=== PATIENT | female | born 1985 | race Caucasian/White ===

== ENCOUNTER → 2017-02-27 | Outpatient (CLI) | payer BC ==
[~2017-02-27] MED LIST: BARIUM SULFATE 60% 355 ML SUSP PO ONE
--- NOTE | 2017-02-27 09:16 | RAD ---
Indication: Abdominal pain and vomiting. The patient ingested barium and serial radiographs of the abdomen were obtained. A total of 1.1 minute of fluoroscopy time was noted. Only one fluoroscopic image was obtained. The preliminary radiograph demonstrates the bowel gas pattern to be unremarkable. There is an IUD in the midline of the pelvis. The stomach has a normal configuration. There is prompt emptying into the small bowel. The small bowel is nondilated. There is a normal small bowel transit time. No obstruction is seen. The mucosal pattern is unremarkable. No intrinsic or extrinsic mass is seen. Impression: Unremarkable small bowel study.
== END | disposition home or self-care (01) ==
LOC: RAD 14:08
PROVIDERS: ATTEND Internal Medicine Gastroenterology
DX: R10.9 Unspecified abdominal pain (principal); R11.11 Vomiting without nausea; K58.9 Irritable bowel syndrome, unspecified
CPT/HCPCS: 74250

== ENCOUNTER → 2017-03-08 | Day surgery (SDC) | payer BC ==
[~2017-03-08] MED LIST changes: -BARIUM SULFATE 60% 355 ML SUSP PO ONE; +BUPR150T6 PO; +DIAZ5TAB PO; +HYDROmorphone 2 MG/ML VIAL IV PRN; +IV RINGERS,LACTATED 1000ML 1,000 ML IV SCH; +LIDOCAINE 1% 1 ML SYRINGE. ID PRN; +LIDOCAINE 2% PF Vial for OR 5 ML VIAL. ONE; +MIDAZOLAM HCL/PF 2 MG/2 ML VIAL. IV PRN; +MORPHINE SULFATE 2 MG/ML DISP.SYRIN. IV PRN; +ONDANSETRON PF 4 MG/2 ML VIAL. IV PRN; +PROCHLORPERAZINE 10 MG/2 ML VIAL. IV PRN; +PROM25TA10 PO; +PROPOFOL 20 ML IV ONE; +PROPOFOL 40 ML IV ONE; +PROT420P PO; +fentaNYL PF VIAL 100 MCG/2 ML VIAL IV PRN
[2017-03-08 09:13] LABS: NEG OBC UR NEG; POS OBC UR POS
[2017-03-08 10:29] VITALS: BP 107/62
--- NOTE | 2017-03-11 15:30 | PATHOLOGY ---
PATHOLOGY REPORT * * * * * * * * FINAL DIAGNOSIS: A. Duodenal biopsy: - No significant pathologic abnormalities. B. Random colon biopsy: - No significant pathologic abnormalities. COMMENT: Sections of the duodenal biopsy reveal segments of small intestine and duodenal mucosa. Where best oriented, the mucosal villi appear normal. There are no sprue-like changes or significant inflammatory changes. Sections of the random colon biopsy reveal multiple segments of colonic mucosa containing several mucosal-associated lymphoid aggregates. There is no evidence of a chronic destructive colitis, lymphocytic colitis, or collagenous colitis. (JPM:csd; d/t: 03/11/2017) REPORT ELECTRONICALLY SIGNED BY: Julio Cesar Grimes M.D. DATE/TIME: 03/11/2017 15:30 * * * * * * * * GROSS PATHOLOGY: A. Received in formalin labeled "Sánchez Choudhury duodenal biopsies," are 9 segments of pelayo soft tissue measuring 1.0 x 0.7 x 0.3 cm in aggregate dimensions and ranging from 0.2 to 0.4 cm in maximum dimension. The specimen is submitted entirely in cassette A1. B. Received in formalin labeled "Sánchez Choudhury, random colon biopsies," are multiple (more than 10) segments of pelayo soft tissue measuring 1.2 x 0.8 x 0.2 cm in aggregate dimensions and ranging from 0.2 to 0.4 cm in maximum dimension. The specimen is submitted entirely in cassette B1. (KAH; 03/08/2017) INITIAL CPT CODE(S): A; 23630 B; 01718 Professional services performed by [facility] [address] Technical services performed by [facility] at [address] [place] [address], [facility] [address] [address]. SPECIMEN(S) RECEIVED: A.Duodenal biopsies B.Random colon biopsies CLINICAL HISTORY: Abdominal pain nausea PATIENT: SÁNCHEZ CHOUDHURY /AGE: 2 1985 (Age: 31) PATIENT #: [id number] ALT CASE #: SPECIMEN COLLECTION DATE: 03/08/2017 SPECIMEN RECEIVED DATE: 03/08/2017 [facility] - [address] [place] [address] - PHONE: [phone] * * * END OF REPORT * * *
== END | disposition home or self-care (01) ==
LOC: ENDOS 08:16
PROVIDERS: ATTEND Internal Medicine Gastroenterology
DX: K64.0 First degree hemorrhoids (principal); K29.50 Unspecified chronic gastritis without bleeding; K31.89 Other diseases of stomach and duodenum; J45.909 Unspecified asthma, uncomplicated; F41.9 Anxiety disorder, unspecified; Z72.89 Other problems related to lifestyle; Z87.39 Personal history of other diseases of the musculoskeletal system and connective tissue
CPT/HCPCS: 43239; 45380; 81025; 88305; J2704

== ENCOUNTER 2021-05-13 17:30 | Inpatient (IN) | payer OTHER, BC ==
[~2021-05-13] VITALS: Ht 162.6 cm; Wt 69.8 kg
[~2021-05-13 17:30] MED LIST changes: +BUPR150T21 PO; -BUPR150T6 PO; -HYDROmorphone 2 MG/ML VIAL IV PRN; -IV RINGERS,LACTATED 1000ML 1,000 ML IV SCH; -LIDOCAINE 1% 1 ML SYRINGE. ID PRN; -LIDOCAINE 2% PF Vial for OR 5 ML VIAL. ONE; -MIDAZOLAM HCL/PF 2 MG/2 ML VIAL. IV PRN; -MORPHINE SULFATE 2 MG/ML DISP.SYRIN. IV PRN; -ONDANSETRON PF 4 MG/2 ML VIAL. IV PRN; -PROCHLORPERAZINE 10 MG/2 ML VIAL. IV PRN; -PROPOFOL 20 ML IV ONE; -PROPOFOL 40 ML IV ONE; -fentaNYL PF VIAL 100 MCG/2 ML VIAL IV PRN
[2021-05-13] MEDS ORDERED: fentaNYL PF VIAL 100 MCG/2 ML VIAL IVP ONE (18:15)
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
--- NOTE | 2021-05-13 19:34 | RAD ---
Exam: Right ankle 3 views. Right tibia and fibula 2 views INDICATION: Pain, deformity TECHNIQUE: Frontal, lateral oblique views of the right ankle. At the lateral views of the right tibia and fibula Comparisons: None FINDINGS: Ankle: Comminuted trimalleolar fracture at the right ankle which is moderately displaced with dissociation a t the tibiotalar joint space. There is diffuse surrounding soft tissue swelling. Bone mineralization is normal. Tib-fib: No other fracture identified. Soft tissues are otherwise unremarkable. Bone mineralization is normal. IMPRESSION: 1. Comminuted trimalleolar fracture of the right ankle, moderately displaced with dissociation at th e tibiotalar joint. 2. No other fractures identified at the right tibia fibula. Electronically signed by: Edil Agosto MD (05/13/2021 7:32 PM) ANGELINA
[2021-05-13] MEDS ORDERED: ETOMIDATE 20 MG/10 ML VIAL. IV ONE ×2 (20:14→20:15)
[2021-05-13] MEDS ORDERED: fentaNYL PF VIAL 100 MCG/2 ML VIAL IV ONE ×3 (20:15→22:00)
[2021-05-13] MEDS ORDERED: IV NORMAL SALINE 1000ML BAG 1,000 ML IV ONE (20:15)
[2021-05-13] MEDS ORDERED: MIDAZOLAM HCL/PF 5 MG/5 ML VIAL. ONE ×2 (20:28→20:32)
[2021-05-13] MEDS ORDERED: diazePAM 5 MG TABLET PO PRN (20:30)
[2021-05-13] MEDS ORDERED: SENNOSIDES/DOCUSATE 8.6/50MG TABLET. PO PRN (20:30)
[2021-05-13] MEDS ORDERED: ONDANSETRON ODT 4 MG TAB.RAPDIS. PO PRN (20:30)
[2021-05-13] MEDS ORDERED: KETOROLAC 15 MG/ML VIAL. IV PRN (20:30)
[2021-05-13] MEDS ORDERED: ACETAMINOPHEN 325 MG TABLET. PO PRN (20:30)
[2021-05-13] MEDS ORDERED: MORPHINE SULFATE 2 MG/ML INJ. IV PRN (20:30)
[2021-05-13] MEDS ORDERED: ZOLPIDEM 5 MG TABLET. PO PRN (20:30)
[2021-05-13 20:31] LABS: BASO # 0.1 x10^3/uL (0.0-0.2); BASO % 1 % (0-3); EOS # 0.2 x10^3/uL (0.0-0.7); EOS % 2 % (0-3); HEMATOCRIT 38.3 % (36.0-47.0); HEMOGLOBIN 12.8 g/dL (12.0-15.5); LYMPH % 24 % (24-48); MEAN CORPUSCULAR HEMOGLOBIN 32 pg (25-35); MEAN CORPUSCULAR HGB CONC 33 g/dL (31-37); MEAN CORPUSCULAR VOLUME 97 fL (79-100); MONO # 0.9 x10^3/uL (0.0-1.1); MONO % 7 % (0-9); NEUT # 8.4 x10^3/uL (1.8-7.7); NEUT % 66 % (31-73); PLATELET COUNT 310 x10^3/uL (140-400); RED BLOOD COUNT 3.95 x10^6/uL (3.50-5.40); RED CELL DISTRIBUTION WIDTH 13.7 % (11.5-14.5); WHITE BLOOD COUNT 12.6 x10^3/uL (4.0-11.0)
[2021-05-13] MEDS ORDERED: MIDAZOLAM HCL/PF 5 MG/5 ML VIAL. IV ONE ×2 (20:32)
[2021-05-13 20:35] LABS: CALCIUM 9.6 mg/dL (8.5-10.1); CREATININE 1.2 mg/dL (0.6-1.0); GFR 50.6; POTASSIUM 3.7 mmol/L (3.5-5.1)
[2021-05-13] MEDS ORDERED: FAMOTIDINE 20 MG/2 ML VIAL ONE (20:39)
[2021-05-13] MEDS ORDERED: KETAMINE HCL IN NACL, ISO-OSM 50 MG/5 ML SYRINGE IV ONE ×3 (20:40→20:48)
[2021-05-13] MEDS ORDERED: KETAMINE HCL IN NACL, ISO-OSM 50 MG/5 ML SYRINGE ONE ×3 (20:40→20:48)
[2021-05-13 20:41] LABS: ALBUMIN 4.2 g/dL (3.4-5.0); ALBUMIN/GLOBULIN RATIO 1.6 (1.0-1.7); TOTAL BILIRUBIN 0.5 mg/dL (0.2-1.0); TOTAL PROTEIN 6.9 g/dL (6.4-8.2)
[2021-05-13] MEDS ORDERED: FAMOTIDINE 20 MG/2 ML VIAL IVP ONE (21:45)
--- NOTE | 2021-05-13 21:53 | RAD ---
AP portable chest radiograph 05/13/2021 Clinical History: Pre-surgical evaluation.. An AP erect portable digital radiograph of the chest was obtained. The cardiac and mediastinal silhouettes are within normal limits in size and configuration. The pulmo nary infiltrate is seen. No pleural effusion or pneumothorax is noted. The osseous structures are carmen ssly intact. IMPRESSION: No acute abnormality is seen. Electronically signed by: Chapito Leija MD (05/13/2021 9:51 PM) [id number]
--- NOTE | 2021-05-13 21:56 | RAD ---
Three-view right ankle radiographs 05/13/2021 CLINICAL HISTORY: Post reduction of a fracture of the right ankle. Portable AP and lateral digital radiographs of the right ankle were obtained. Comparison study is mario ed 05/13/2021. External cast is been placed surrounding the right ankle. Acute comminuted fractures ar e seen involving the distal right fibula near the lateral malleolus along with the medial malleolus o f the right ankle. The fracture of the medial malleolus is displaced inferiorly and laterally. Fractu re is involving the distal right fibula are displaced medially and laterally. The right ankle mortise is disrupted subluxation of the tibial talar joint is seen. The alignment of fracture fragments has improved since previous study. IMPRESSION: Postreduction radiographs of the right ankle as discussed above. Electronically signed by: Chapito Leija MD (05/13/2021 9:54 PM) [id number]
[2021-05-13 22:02] VITALS: BP 129/69
[2021-05-13] MEDS: MORPHINE SULFATE 2 MG/ML INJ. IV PRN ×2 (22:30→23:36)
[2021-05-13] MEDS: IV NORMAL SALINE 1000ML BAG 1,000 ML IV SCH (23:04)
[2021-05-13 23:07] VITALS: BP 146/84
[2021-05-14] MEDS: fentaNYL PF VIAL 100 MCG/2 ML VIAL IV PRN ×6 (00:55→11:03)
[2021-05-14 03:00] VITALS: BP 124/85
[2021-05-14] MEDS: IV NORMAL SALINE 1000ML BAG 1,000 ML IV SCH ×2 (04:15→12:15)
[2021-05-14] MEDS ORDERED: ceFAZolin SODIUM IV Push 1 GM VIAL. IVP PRN (06:00)
[2021-05-14] MEDS ORDERED: LIDOCAINE 2% PF 5 ML VIAL. ONE (06:11)
[2021-05-14] MEDS ORDERED: ONDANSETRON PF 4 MG/2 ML VIAL. ONE ×2 (06:11→08:15)
[2021-05-14] MEDS ORDERED: PROPOFOL 10 MG/ML (20ML) VIAL. IV ONE ×2 (06:11→09:18)
[2021-05-14] MEDS ORDERED: DEXAMETHASONE SOD PHOS 4 MG/ML VIAL ONE ×2 (06:11→08:15)
[2021-05-14 07:00] VITALS: BP 127/80
[2021-05-14] MEDS ORDERED: BUPIVACAINE-EPI 0.5%-1:200000 MPF 30 ML VIAL. ONE (07:10)
[2021-05-14 07:33] LABS: U PREG PATIENT NEGATIVE (NEG)
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
[2021-05-14] MEDS ORDERED: MORPHINE SULFATE 4 MG/ML INJ. IVP PRN (08:00)
[2021-05-14] MEDS ORDERED: ONDANSETRON PF 4 MG/2 ML VIAL. IVP PRN ×2 (08:00)
[2021-05-14] MEDS ORDERED: DEXTROSE 50% 25 GM / 50ML DISP.SYRIN. IV PRN (08:00)
[2021-05-14] MEDS ORDERED: ALBUTEROL SULFATE 2.5 MG/3 ML NEBU. NEB PRN (08:00)
[2021-05-14] MEDS ORDERED: IV RINGERS,LACTATED 1000ML 1,000 ML IV SCH (08:00)
[2021-05-14] MEDS ORDERED: POLYETHYLENE GLYCOL 3350 17 GM PACKET. PO PRN (08:00)
[2021-05-14] MEDS ORDERED: traMADol 50 MG TABLET PO PRN (08:00)
[2021-05-14] MEDS ORDERED: PROCHLORPERAZINE 10 MG/2 ML VIAL. IVP PRN (08:00)
[2021-05-14] MEDS ORDERED: HYDROmorphone 2 MG/ML VIAL IVP PRN (08:00)
[2021-05-14] MEDS ORDERED: oxyCODONE IR 5 MG TABLET PO PRN (08:00)
[2021-05-14] MEDS ORDERED: MORPHINE SULFATE 2 MG/ML INJ. IVP PRN ×2 (08:00)
[2021-05-14] MEDS ORDERED: HYDROcodone/APAP 7.5/325MG 1 TAB TABLET PO PRN (08:00)
[2021-05-14] MEDS ORDERED: fentaNYL PF VIAL 100 MCG/2 ML VIAL IVP PRN ×2 (08:00)
[2021-05-14] MEDS ORDERED: SCOPOLAMINE 1.5MG PATCH. TD ONE (08:01)
[2021-05-14] MEDS ORDERED: SEVOFLURANE 61 TO 120 MINUTES. IH ONE (09:18)
[2021-05-14] MEDS ORDERED: PROCHLORPERAZINE 10 MG/2 ML VIAL. ONE (10:05)
[2021-05-14] MEDS ORDERED: MORPHINE SULFATE 2 MG/ML INJ. ONE (10:06)
[2021-05-14] MEDS ORDERED: fentaNYL PF VIAL 100 MCG/2 ML VIAL ONE ×2 (10:07→10:57)
[2021-05-14] MEDS: MORPHINE SULFATE 2 MG/ML INJ. IV PRN ×4 (10:11→18:52)
[2021-05-14] MEDS: fentaNYL PF VIAL 100 MCG/2 ML VIAL IVP PRN ×3 (10:12→11:19)
--- NOTE | 2021-05-14 11:17 | PDOC4 ---
OPERATIVE NOTE: SURGERY DATE: May 14, 2021 PROCEDURE: Open reduction internal fixation right ankle trimalleolar fracture PREOPERATIVE DIAGNOSIS: Right ankle fracture, unstable POSTOPERATIVE DIAGNOSIS: Same SURGEON: Mir Seals ASSIST: None ANESTHESIA: General EBL: <50cc SPECIMEN: None POSITION: Supine COMPLICATIONS: None IMPLANT SPECIFICATIONS: [employer] ankle periarticular plate was used for the fibula with 2 cannulated screws for the medial malleolus and a single 4 cortical syndesmotic screw DESCRIPTION OF PROCEDURE: The patient was seen in the preoperative holding area, the site was marked, and consent was verified. Patient received preoperative antibiotics and was wheeled back to the operating room. The Department of Anesthesia administered anesthetic and maintained control of the airway. A tourniquet was placed proximal on the operative extremity. Time out was observed. Sterile prep and drape was performed of the operative extremity. Esmarch was used to exsanguinate the limb and tourniquet was inflated. At this point a 10 cm incision was made laterally over the distal fibula. Soft tissue dissection was carried out sharply down to the fascial layer. The fascia was split just anterior to the peroneal tendons and muscle. This allowed direct visualization of the lateral cortex at the fibula distally. The fracture was identified, and a direct reduction was performed with lobster claw clamps. The fracture was fixed using a one third tubular plate and multiple AO screws. These were bicortical proximal to the fracture and deep unicortical cancellous screws distal. The wound was copiously irrigated, and a moist sponge was placed. We samantha our attention to the medial aspect of the ankle. A 4 cm incision was made over the medial malleolus. Soft tissue dissection was carried out down to the medial malleolar bone. This area was copiously irrigated and suctioned dry. The fracture was identified and although fracture alignment was in good position. At this point malleolar screw was placed up the medial malleolus and into the distal tibia as a strut for fixation. Copious irrigation was run through the Wounds. Using fluoroscopy and external rotation view was obtained. The cotton test was performed revealing syndesmotic widening. At this point the syndesmosis screw were placed. We used 4 cortices screws x 1. These were placed with syndesmotic compression with the foot in maximal dorsiflexion. Final x-rays using fluoroscopy were obtained. Cotton test and external rotation stress were performed and found to reveal no medial widening. Copious irrigation was run through the incision(s) and layered closure was performed. A large bulky dressing was applied. Anesthesia was reversed and the patient was transferred to postop in apparent stable condition. DISPOSITION: The patient will be discharged to home non-weight bearing and follow up in the clinic Prognosis: Fair. LESLIE GREENBERG DO May 14, 2021 11:17 am
[2021-05-14] MEDS: IPRATRPIUM/ALBUTEROL 0.5/2.5MG 3 ML NEBU. NEB SCH ×3 (12:00→21:45)
[2021-05-14] MEDS: CELECOXIB 100 MG CAPSULE. PO SCH (12:33)
[2021-05-14] MEDS: SENNOSIDES/DOCUSATE 8.6/50MG TABLET. PO SCH (12:33)
[2021-05-14] MEDS: buPROPion XL 150 MG TAB.ER.24H. PO SCH (12:33)
[2021-05-14] MEDS: ceFAZolin SODIUM IV Push 1 GM VIAL. IVP SCH ×3 (12:34→23:48)
[2021-05-14] MEDS: HYDROcodone/APAP 7.5/325MG 1 TAB TABLET PO PRN ×3 (12:45→22:21)
[2021-05-14 15:00] VITALS: BP 128/80
[2021-05-14 19:00] VITALS: BP 106/56
[2021-05-14] MEDS: BUDESONIDE 0.5 MG/2 ML NEBU. NEB SCH (21:45)
[2021-05-14 23:00] VITALS: BP 122/62
[2021-05-15 02:59] VITALS: BP 118/60
[2021-05-15] MEDS ORDERED: MAGNESIUM HYDROXIDE 2,400 MG/30 ML ORAL.SUSP. PO PRN (06:00)
[2021-05-15 06:34] VITALS: BP 110/53
[2021-05-15] MEDS: BUDESONIDE 0.5 MG/2 ML NEBU. NEB SCH (08:00)
[2021-05-15] MEDS: buPROPion XL 150 MG TAB.ER.24H. PO SCH (08:48)
[2021-05-15] MEDS: SENNOSIDES/DOCUSATE 8.6/50MG TABLET. PO SCH (08:48)
[2021-05-15] MEDS: CELECOXIB 100 MG CAPSULE. PO SCH (08:48)
[2021-05-15] MEDS: HYDROcodone/APAP 7.5/325MG 1 TAB TABLET PO PRN ×2 (09:00→12:59)
--- NOTE | 2021-05-15 10:14 | NUR ---
SW following. Discussed with RN, pt from home, room air, regular diet, COVID-19 negative. Pt had surgery 05/14/21. RN advised no SW needs - pt wanting to discharge home today. SW will continue to follow.
[2021-05-15 10:49] LABS: BASO % 0 % (0-3); EOS % 1 % (0-3); HEMATOCRIT 33.3 % (36.0-47.0); HEMOGLOBIN 11.2 g/dL (12.0-15.5); LYMPH # 1.7 x10^3/uL (1.0-4.8); LYMPH % 17 % (24-48); MEAN CORPUSCULAR HEMOGLOBIN 33 pg (25-35); MEAN CORPUSCULAR HGB CONC 34 g/dL (31-37); MEAN CORPUSCULAR VOLUME 98 fL (79-100); MONO % 10 % (0-9); NEUT # 7.3 x10^3/uL (1.8-7.7); NEUT % 72 % (31-73); PLATELET COUNT 224 x10^3/uL (140-400); WHITE BLOOD COUNT 10.1 x10^3/uL (4.0-11.0)
[2021-05-15 11:00] VITALS: BP 104/51
[2021-05-15 11:03] LABS: CALCIUM 8.6 mg/dL (8.5-10.1); GFR 62.4; MAGNESIUM 2.2 mg/dL (1.8-2.4); POTASSIUM 3.6 mmol/L (3.5-5.1)
[2021-05-15] MEDS: IPRATRPIUM/ALBUTEROL 0.5/2.5MG 3 ML NEBU. NEB SCH ×2 (11:38→12:00)
[2021-05-15] MEDS ORDERED: IBUPROFEN 200 MG TABLET. PO PRN (12:00)
[2021-05-15] MEDS ORDERED: IBUP-1670 PO (12:50)
[2021-05-15] MEDS ORDERED: HYDR-2765 PO (12:51)
--- NOTE | 2021-05-15 12:52 | DISCH ---
DISCHARGE INSTRUCTIONS Condition on Discharge Condition on Discharge: Stable Activity After Discharge Activity Instructions for Disc: Activity as tolerated Lifting Instructions after Dis: Do not lift >10 pounds Exercise Instruction after Dis: Walk 15 min, 3 x per day Driving Instructions after Dis: Do not drive today Weight Bearing Status after Di: As tolerated, Partial weight bearing, Non weight bearing Diet after Discharge Diet after Discharge: Cardiac Follow-Up Follow up with: PCP within 2 weeks of discharge Follow Up With: Orthopedic surgery as scheduled for postop check KEVIN ELKINS MD May 15, 2021 12:52
[2021-05-15 15:00] VITALS: BP 109/52
[2021-05-15] MEDS ORDERED: BISACODYL 10 MG SUPP.RECT. PR PRN (16:00)
== END 2021-05-15 16:15 | disposition home or self-care (01) | DRG 493 ==
LOC: ER 17:30 → 4 NORTH 21:01
PROVIDERS: ADMIT Student in an Organized Health Care Education/Training Program; ATTEND Student in an Organized Health Care Education/Training Program
PROC: 0QSJ04Z Reposition Right Fibula with Internal Fixation Device, Open Approach (ICD-10-PCS; 2021-05-14)
PROC: 0QSG04Z Reposition Right Tibia with Internal Fixation Device, Open Approach (ICD-10-PCS; principal; 2021-05-14 08:00)
DX: S82.851A Displaced trimalleolar fracture of right lower leg, initial encounter for closed fracture (principal); E87.1 Hypo-osmolality and hyponatremia; N17.9 Acute kidney failure, unspecified; D72.829 Elevated white blood cell count, unspecified; E86.1 Hypovolemia; J45.909 Unspecified asthma, uncomplicated; Z20.822 Contact with and (suspected) exposure to COVID-19; Z82.49 Family history of ischemic heart disease and other diseases of the circulatory system; Z79.899 Other long term (current) drug therapy; W18.39XA Other fall on same level, initial encounter; Y93.89 Activity, other specified; Y92.89 Other specified places as the place of occurrence of the external cause; Y99.8 Other external cause status
CPT/HCPCS: 27818; 36415; 71045; 73590; 73600; 73610; 76000; 80048; 80053; 81025; 83735; 85025; 87426; 94640; 96361; 96374; 99152; 99153; A4930; A6253; A6402; A6449; A6455; C1713; J0690; J0780; J1100; J1885; J2250; J2270; J2405; J2704; J3010; J3490; J7030; J7120; U0003; U0005; 97116-GP; 99285-25; G0378; J7626